=== PATIENT | female | born 2000 | race African-American/Black ===

== ENCOUNTER → 2018-07-27 | Outpatient (REF) | payer OTHER | LOC: M SFHCLERA 21:05 | DX: L08.9 Local infection of the skin and subcutaneous tissue, unspecified (principal) ==

== ENCOUNTER 2018-10-13 04:59 | Emergency (ER) | payer OTHER ==
[~2018-10-13] VITALS: Ht 162.6 cm; Wt 77.3 kg
[2018-10-13 05:02] VITALS: BP 129/86
[2018-10-13] MEDS ORDERED: AUGM500T34 PO (05:58)
[2018-10-13] MEDS ORDERED: AUGMENTIN 875 MG TAB PO ONE (06:00)
== END 2018-10-13 06:08 | disposition home or self-care (01) ==
LOC: M ED 04:59
DX: J02.9 Acute pharyngitis, unspecified (principal)

== ENCOUNTER 2018-11-01 12:24 | Emergency (ER) | payer OTHER ==
[~2018-11-01] VITALS: Ht 162.6 cm; Wt 81.8 kg
[~2018-11-01 12:24] MED LIST: AUGM500T34 PO
[2018-11-01] MEDS ORDERED: PROAAER10 INH (12:28)
[2018-11-01] MEDS ORDERED: MORPHINE 4 MG/ML 1ML VIAL/SYRINGE (J2270) IV ONE ×2 (13:00→16:15)
[2018-11-01] MEDS ORDERED: NS 1,000 ML IV ONE (13:00)
[2018-11-01] MEDS ORDERED: ONDANSETRON 4MG/2ML VIAL (J2405) IV ONE (13:00)
--- NOTE | 2018-11-01 13:34 | REP ---
Chest two views HISTORY: Abdominal pain Comparison: None The lungs are clear. The heart is normal in size. The pulmonary vasculature is normal in appearance. The bony structure is intact. IMPRESSION: No acute disease. Electronically Signed by Margarito Schwab MD 11/01/2018 01:25 P
[2018-11-01] MEDS: GASTROGRAFIN SOLUTION 30ML PO SCH ×2 (14:17→14:44)
[2018-11-01 15:23] LABS: BASO % 0.9 % (0.0-1.0); EOS # 0.2 10^3/uL (0.0-0.50); EOS % 4.7 % (0.0-3.0); HEMATOCRIT 37.4 % (36.0-47.0); HEMOGLOBIN 12.5 g/dl (12.0-15.5); LYMPH # 1.3 10^3/uL (1.5-6.5); LYMPH % 28.3 % (24.0-44.0); MEAN CORPUSCULAR HEMOGLOBIN 32.2 pg (27.0-33.0); MEAN CORPUSCULAR HGB CONC 33.4 g/dl (32.0-36.5); MEAN CORPUSCULAR VOLUME 96.4 fl (80.0-96.0); MONO # 0.7 10^3/uL (0.0-0.8); NEUTROPHILS # 2.2 10^3/uL (1.8-7.7); NEUTROPHILS % 49.7 % (36.0-66.0); PLATELET COUNT, AUTOMATED 211 10^3/uL (150-450); RED BLOOD COUNT 3.88 10^6/uL (4.00-5.40); WHITE BLOOD COUNT 4.5 10^3/uL (4.0-10.0)
[2018-11-01 15:55] LABS: ALBUMIN 3.8 GM/DL (3.2-5.2); ALT/SGPT 28 U/L (12-78); BILIRUBIN,DIRECT < 0.1 MG/DL (0.0-0.2); BILIRUBIN,TOTAL 0.3 MG/DL (0.2-1.0); BLOOD UREA NITROGEN 12 MG/DL (7-18); CALCIUM LEVEL 8.5 MG/DL (8.5-10.1); CARBON DIOXIDE LEVEL 29 MEQ/L (21-32); CHLORIDE LEVEL 109 MEQ/L (98-107); CK-MB VALUE MASS < 1.0 NG/ML (<3.6); CPK CREATINE PHOSPHOKINASE 338 U/L (26-192); CREATININE FOR GFR 0.74 MG/DL (0.55-1.30); GLUCOSE, FASTING 71 MG/DL (70-100); HCG, SERUM QUANTITATIVE < 1.0 MIU/ML; LIPASE 38 U/L (73-393); POTASSIUM SERUM 5.7 MEQ/L (3.5-5.1); SODIUM LEVEL 140 MEQ/L (136-145); TOTAL PROTEIN 7.5 GM/DL (6.4-8.2); TROPONIN I < 0.02 NG/ML (< 0.10)
[2018-11-01 15:56] LABS: INFLUENZA A AMPLIFICATION NEGATIVE (NEGATIVE); INFLUENZA B AMPLIFICATION NEGATIVE (NEGATIVE)
[2018-11-01] MEDS ORDERED: ISOVUE-370 76% 125ML VIAL (Q9967 PER ML) As Ordered ONE (16:03)
--- NOTE | 2018-11-01 16:30 | REP ---
CT abdomen pelvis with contrast History: Abdominal pain Contrast: Isovue 370 100 ml The liver, gallbladder, pancreas, spleen, adrenal glands and kidneys are normal in appearance. There is no mass adenopathy or free fluid. The visualized lungs are clear. The urinary bladder and uterus are normal in appearance. There is no fracture or subluxation. There is partial sacralization of the L5 vertebral body. Impression: Normal CT abdomen and pelvis. Electronically Signed by Margarito Schwab MD 11/01/2018 04:22 P
[2018-11-01] MEDS ORDERED: IBUP-1022 PO (16:47)
[2018-11-01] MEDS ORDERED: CITRSOL8 PO (16:47)
[2018-11-01] MEDS ORDERED: MIRA3350 PO (16:47)
[2018-11-01 16:57] VITALS: BP 127/83
--- NOTE | 2018-11-01 18:51 | ECGEPIP ---
Stationary ECG Study [facility] - ED Test Date: 2018-11-01 Pat Name: RAISSA VERONICA Department: Room: - Gender: F Extruder: JASPREET : 2000 Requested By: CAITLYN Wilson Order Number: [id number] Reading MD: Leona Casper Measurements Intervals [place] Rate: 72 P: 41 ID: [id number] QRS: 30 QRSD: 83 T: 39 QT: 364 QTc: 398 Interpretive Statements SINUS RHYTHM NO PRIOR FOR COMPARISON Electronically Signed On 11-01-2018 18:50:47 EDT by Leona Casper
== END 2018-11-01 17:05 | disposition home or self-care (01) ==
LOC: M ED 12:24
DX: K59.00 Constipation, unspecified (principal); J45.909 Unspecified asthma, uncomplicated; Z87.891 Personal history of nicotine dependence
CPT/HCPCS: 71046; 74177; 80048; 80076; 81001; 82550; 82553; 83605; 83690; 84484; 84702; 85025; 87502; 93005; 93041; 96361; 96374; 96375; 96376; 99285; J2270; J2405; Q9963; Q9967

== ENCOUNTER 2019-01-13 13:34 | Emergency (ER) | payer OTHER ==
[~2019-01-13] VITALS: Ht 162.6 cm; Wt 80.5 kg
[~2019-01-13 13:34] MED LIST changes: +CITRSOL8 PO; +IBUP-1022 PO; +MIRA3350 PO; +PROAAER10 INH
[2019-01-13] MEDS ORDERED: FLON27.5 NARES (16:49)
[2019-01-13 16:56] VITALS: BP 122/73
[2019-01-13] MEDS ORDERED: IBUPROFEN 600 MG TAB PO ONE (17:00)
== END 2019-01-13 17:02 | disposition home or self-care (01) ==
LOC: M ED 13:34
DX: J06.9 Acute upper respiratory infection, unspecified (principal); Z77.098 Contact with and (suspected) exposure to other hazardous, chiefly nonmedicinal, chemicals

== ENCOUNTER 2019-01-31 21:10 | Emergency (ER) | payer OTHER ==
[~2019-01-31] VITALS: Ht 162.6 cm; Wt 84.1 kg
[~2019-01-31 21:10] MED LIST changes: +FLON27.5 NARES
[2019-01-31] MEDS ORDERED: CYCLOBENZAPRINE 10 MG TAB PO ONE (22:30)
[2019-01-31] MEDS ORDERED: KETOROLAC 60 MG/2 ML VIAL (J1885) IM ONE (22:30)
[2019-01-31] MEDS ORDERED: CYCL5TAB PO (23:12)
[2019-01-31 23:22] VITALS: BP 120/80
--- NOTE | 2019-02-01 07:35 | REP ---
Left knee five views : There is no fracture or dislocation. Mineralization and joint spaces are normal. There are no calcifications or foreign bodies. Impression: Negative left knee . Electronically Signed by Noel Conway MD 02/01/2019 07:27 A
== END 2019-01-31 23:24 | disposition home or self-care (01) ==
LOC: M ED 21:10
DX: M54.5 Low back pain (principal); M79.661 Pain in right lower leg; M79.662 Pain in left lower leg; Z77.098 Contact with and (suspected) exposure to other hazardous, chiefly nonmedicinal, chemicals
CPT/HCPCS: 73564; 96372; 99283; J1885

== ENCOUNTER 2019-03-29 10:00 | Inpatient (IN) | payer OTHER ==
[~2019-03-29] VITALS: Ht 165.1 cm; Wt 87.3 kg
[~2019-03-29 10:00] MED LIST changes: +CYCL5TAB PO
[2019-03-29] MEDS ORDERED: CITA10TA5 PO (10:29)
[2019-03-29] MEDS ORDERED: HYDR-3363 PO (10:29)
[2019-03-29] MEDS ORDERED: MELA1LIQ2 PO (10:29)
[2019-03-29 10:38] LABS: HEMATOCRIT 39.8 % (36.0-47.0); HEMOGLOBIN 13.3 g/dl (12.0-15.5); MEAN CORPUSCULAR HEMOGLOBIN 32.6 pg (27.0-33.0); MEAN CORPUSCULAR HGB CONC 33.4 g/dl (32.0-36.5); MEAN CORPUSCULAR VOLUME 97.5 fl (80.0-96.0); PLATELET COUNT, AUTOMATED 288 10^3/uL (150-450); RED BLOOD COUNT 4.08 10^6/uL (4.00-5.40); WHITE BLOOD COUNT 4.9 10^3/uL (4.0-10.0)
[2019-03-29 10:51] LABS: HCG, SERUM QUALITATIVE NEGATIVE (NEGATIVE)
[2019-03-29 10:56] LABS: AMPHETAMINES LEVEL URINE NEGATIVE (NEGATIVE); BARBITURATES URINE NEGATIVE (NEGATIVE); BENZODIAZEPINES URINE NEGATIVE (NEGATIVE); CANNABINOIDS URINE NEGATIVE (NEGATIVE); COCAINE METABOLITE URINE NEGATIVE (NEGATIVE); METHADONE URINE NEGATIVE (NEGATIVE); OPIATES URINE NEGATIVE (NEGATIVE); PHENCYCLIDINE URINE NEGATIVE (NEGATIVE)
[2019-03-29 11:04] LABS: ALT/SGPT 30 U/L (12-78); BILIRUBIN,DIRECT 0.2 MG/DL (0.0-0.2); BILIRUBIN,TOTAL 0.4 MG/DL (0.2-1.0); BLOOD UREA NITROGEN 9 MG/DL (7-18); CALCIUM LEVEL 9.6 MG/DL (8.5-10.1); CARBON DIOXIDE LEVEL 30 MEQ/L (21-32); CHLORIDE LEVEL 109 MEQ/L (98-107); CREATININE FOR GFR 0.73 MG/DL (0.55-1.30); GLUCOSE, FASTING 81 MG/DL (70-100); POTASSIUM SERUM 4.4 MEQ/L (3.5-5.1); SALICYLATE LEVEL < 1.7 MG/DL (5.0-30.0); SODIUM LEVEL 143 MEQ/L (136-145); TOTAL PROTEIN 7.5 GM/DL (6.4-8.2)
[2019-03-29 11:05] LABS: ACETAMINOPHEN LEVEL < 2.0 UG/ML (10.0-30.0); ETHYL ALCOHOL (ETHANOL) < 0.003 % (0.000-0.010)
[2019-03-29] MEDS ORDERED: hydrOXYzine 25 MG TAB PO PRN (13:15)
[2019-03-29] MEDS ORDERED: HALOPERIDOL 5 MG TAB PO PRN (13:15)
[2019-03-29] MEDS ORDERED: ACETAMINOPHEN TAB 650MG DOSE (2X325MG) PO PRN (13:15)
[2019-03-29] MEDS ORDERED: MOM 30ML SUSPENSION UDC PO PRN (13:15)
[2019-03-29] MEDS ORDERED: NICOTINE 21MG/24HR 1 EA TRANSDERMAL TD ONE (15:00)
[2019-03-29] MEDS: CitaloPRAM (CeleXA) 10 MG TABLET PO SCH (15:57)
[2019-03-29 16:28] VITALS: BP_SYST 143; BP_SYST 147; BP_DIAS 84; BP_DIAS 86
[2019-03-30 06:46] VITALS: BP 119/55
[2019-03-30] MEDS: CitaloPRAM (CeleXA) 10 MG TABLET PO SCH (08:06)
[2019-03-30] MEDS: NICOTINE 21MG/24HR 1 EA TRANSDERMAL TD SCH (08:07)
--- NOTE | 2019-03-30 10:21 | HPEPDOC ---
General Date of Admission Mar 29, 2019 at 13:06 Date of Service: Mar 30, 2019 Attending Physician: ELAN THOMPSON MD Chief Complaint The patient is a 18-year-old female admitted with a reason for visit of Unspecified Depressive Disorder. 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 Review of medical records state patient has been having thoughts of depression and having thoughts of killing herself for chuck roximately 1 week. She does have a history of depression and anxiety. On evaluation, patient denies chest pain, shortness of breath, weakness, chills, fever, abdominal pain, she complains of insomnia Home Medications Scheduled Citalopram Hydrobromide (Citalopram HBr) 10 Mg Tablet, 10 MG PO DAILY, (Reported) Scheduled PRN Hydroxyzine HCl (Hydroxyzine HCl) 25 Mg Tablet, 25 MG PO Q8H PRN for ANXIETY, (Reported) Allergies Coded Allergies: No Known Allergies (Unverified , 01/31/19) Past Medical History Medical History Obesity Insomnia Depression and anxiety Surgical History Tonsillectomy Family History Mother: Hypothyroidism Social History * Smoker: Denies, current smoker Alcohol: Denies Drugs: denies A-FIB/CHADSVASC A-FIB History Current/History of A-Fib/PAF?: No Current PO Anticoag Therapy: No Review of Systems Other systems A pertinent 10 point review of systems is completed, negative except as stated in the history of presenting illness Physical Examination Other physical findings GENERAL: NAD SKIN : Warm, dry intact HEENT: Atraumatic, normocephalic, PERRL, moist mucous membrane CARDIOVASCULAR: Regular rate and rhythm, S1S2, no JVD, trace edema BLE, distal pulses + palpable RESP: CTAB, no accessory muscle use noted ABDOMEN: BS+ non distended non tender MS: no joint deformities NEURO: Alert and oriented x 3, CN2-12 grossly intact PSYCH: no anxiety or agitation, appropriate mood and affect. Vital Signs Vital Signs Date Time Temp Pulse Resp B/P (MAP) Pulse Ox O2 Delivery O2 Flow Rate FiO2 03/30/19 06:46 98.0 55 14 119/55 (76) 03/29/19 16:28 96 03/29/19 14:02 Room Air Laboratory Data Labs 24H Laboratory Tests 2 03/29/19 10:21: Nucleated Red Blood Cells % (auto) 0.0, Anion Gap 4L, Calcium Level 9.6, Aspartate Amino Transf (AST/SGOT) 21, Alanine Aminotransferase (ALT/SGPT) 30, Alkaline Phosphatase 83, Total Bilirubin 0.4, Direct Bilirubin 0.2, Total Protein 7.5, Albumin 4.0, Albumin/Globulin Ratio 1.14, Thyroid Stimulating Hormone (TSH) 3.080, Human Chorionic Gonadotropin, Qual NEGATIVE, Salicylates Level < 1.7L, Acetaminophen Level < 2.0L, Ethyl Alcohol Level < 0.003 03/29/19 10:27: Urine Amphetamines Screen NEGATIVE, Urine Benzodiazepines Screen NEGATIVE, Urine Opiates Screen NEGATIVE, Urine Methadone Screen NEGATIVE, Urine Barbiturates Screen NEGATIVE, Urine Phencyclidine Screen NEGATIVE, Urine Cocaine Metabolite Screen NEGATIVE, Urine Cannabinoids Screen NEGATIVE CBC/BMP Laboratory Tests 03/29/19 10:21 Red Blood Count 4.08, Mean Corpuscular Volume 97.5 H, Mean Corpuscular Hemoglobin 32.6, Mean Corpuscular Hemoglobin Concent 33.4, Red Cell Distribution Width 12.3 Assessment/Plan Obesity BMI32 Nicotine dependence Suicidal ideation Depression and anxiety/insomnia Plan Currently, patient has no acute medical problems requiring follow-up and management Management of acute mental health problems by primary team Reconsult medical team as needed Problems (1) Obesity (BMI 30.0-34.9) (2) Depression with suicidal ideation Status: Acute Plan / VTE VTE Prophylaxis Ordered?: No VTE Exclusion Mechanical Proph: Low Risk for VTE MIGUELITO STERN Mar 30, 2019 10:21
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
[2019-03-30 17:52] VITALS: BP 110/58
[2019-03-30 18:00] VITALS: BP 110/58
[2019-03-30] MEDS: traZODone 50 MG TAB PO PRN (23:15)
[2019-03-31 06:52] VITALS: BP 122/66
[2019-03-31] MEDS: buPROPion **XL** TABLET 150MG (WELLBUTRIN XL) PO SCH (08:15)
[2019-03-31] MEDS: NICOTINE 21MG/24HR 1 EA TRANSDERMAL TD SCH (08:16)
--- NOTE | 2019-03-31 11:54 | MHIPNPDOC ---
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 Interval History The patient's met with twice today. She reports that she is feeling much improved with no depressive symptoms, improved focus and concentration, and has been attending groups well. No notable behavioral problems. She has been generally amenable on the unit and denies any side effects from her Wellbutrin at this time. She reports that she is feeling ready to return home tomorrow and is relieved to be leaving the unit. Review Of Systems Denies any headache, tremor, palpitations, or other side effects related to her Wellbutrin at this time. Psychotherapy None on this visit. Vital Signs Reviewed. Mental Status Examination General: Well dressed with good hygiene Speech: Spontaneous and fluid Thought processes: Linear and logical MSK: Smooth and coordinated gait, no signs of tremors or involuntary orofacial movements Thought content: Future orientated Abstract reasoning, and computation: Intact Description of associations: Intact Description of abnormal or psychotic thoughts: Denies any suicidal or homicidal ideation. Denies any auditory or visual hallucinations. Does not appear to be responding to internal stimuli. Does not appear to be endorsing any bizarre or paranoid ideation. Judgment: fair Insight: fair Orientation: Alert and orientated 3 Cognition: Grossly normal Recent and remote memory: Intact Attention span and concentration: Intact Fund of knowledge: Adequate Mood: "okay" Affect: Euthymic with a full range Diagnoses Unspecified depressive disorder Rule out adjustment disorder versus malingering/factitious Unspecified personality disorder Rule out cluster B/borderline personality traits Assessment and Plan The patient's met with today and it appears that she's making good progress on a low dose of Wellbutrin. Her initial presenting symptoms could very well be malingered or related to adjustment and/or borderline personality disorder. However, she has elected that she wishes to go and does not meet involuntary criteria as she's not demonstrating any suicidal thoughts for last 24 hours and is attending to her needs and it does appear in this provider's clinical judgment that she's likely manufacturing a significant portion of her symptoms as well as the reported suicidal ideation noted on her admission in order to gain a med board to avert her chapter 15 article that she has received. Disposition Discharge tomorrow. Time Spent 15 minutes [id number]. Vital Signs Vital Signs Date Time Temp Pulse Resp B/P (MAP) Pulse Ox O2 Delivery O2 Flow Rate FiO2 03/31/19 06:52 98.2 52 18 122/66 (84) 03/29/19 16:28 96 03/29/19 14:02 Room Air Current Medications Current Medications Medications (Trade) Dose Ordered Sig/Tata Route PRN Reason Start Time Stop Time Status Last Admin Dose Admin Acetaminophen (Tylenol Tab) 650 mg Q6HP PRN PO HEADACHE or DISCOMFORT 03/29/19 13:15 Bupropion HCl (Wellbutrin Xl) 150 mg DAILY PO 03/31/19 09:00 03/31/19 08:15 Citalopram Hydrobromide (CeleXA) 10 mg DAILY PO 03/29/19 09:00 03/30/19 14:46 DC 03/30/19 08:06 Haloperidol (Haldol) 5 mg Q6HP PRN PO ANXIETY/AGITATION 03/29/19 13:15 Home Med (Med Rec Complete!) ASDIRECTED XX 03/29/19 13:15 03/29/19 13:15 DC Hydroxyzine HCl (Atarax) 25 mg Q8H PRN PO ANXIETY 03/29/19 13:15 Magnesium Hydroxide (Milk Of Magnesia) 30 ml DAILYPRN PRN PO CONSTIPATION 03/29/19 13:15 Nicotine (Nicoderm Cq 21mg) 1 patch DAILY TD 03/30/19 09:00 03/31/19 08:16 Trazodone HCl (Desyrel) 50 mg QHSP PRN PO INSOMNIA 03/29/19 13:15 03/30/19 23:15 Allergies Coded Allergies: No Known Allergies (Unverified , 01/31/19) NETO WEINER DO Mar 31, 2019 11:54
[2019-03-31 18:00] VITALS: BP 117/76
[2019-03-31] MEDS: traZODone 50 MG TAB PO PRN (22:37)
[2019-04-01 06:45] VITALS: BP 101/68
[2019-04-01] MEDS: buPROPion **XL** TABLET 150MG (WELLBUTRIN XL) PO SCH (08:27)
[2019-04-01] MEDS: NICOTINE 21MG/24HR 1 EA TRANSDERMAL TD SCH (08:27)
[2019-04-01] MEDS ORDERED: BUPR150T3 PO (11:22)
[2019-04-01] MEDS ORDERED: NICO21PAT TD (11:22)
--- NOTE | 2019-04-01 20:50 | MHDSPDOC ---
[facility] Discharge Summary Discharge Summary DATE OF ADMISSION: Mar 29, 2019 at 13:06 DATE OF DISCHARGE: Apr 01, 2019 at 13:30 Date of Service: 04/01/2019 Diagnoses Unspecified depressive disorder. Rule out malingering versus factitious versus adjustment. 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 Consultants Involved Hospitalist/PCP screening Treatment and Progress On The Unit The patient was admitted to the inpatient unit, where she was observed. She was started on Wellbutrin, taken off of her citalopram and started 250 mg daily of extended-release. She made fairly good progress. However, it was notable during her mission that she did not demonstrate any concerning signs or symptoms that would be consistent with the reported symptoms of depression that she had been claiming on initial evaluation. Her reported suicidal thoughts upon initial evaluation rapidly dissolved when the patient had noted that she was "board" and wished to be discharged. She did not meet involuntary criteria at that time as she was not demonstrating any concernings thoughts and her behavior was consistent with the generally euthymic individual and thus she was discharged in good phase as she didn't like against a further voluntary admission. She had made multiple statements during her admission that she was considering a med board at this time and had neglected to mention her Article 15 proceedings. There's a strong concern among many members of the treatment team that the patient was manufacturing her symptoms in a vain attempt to avoid an Article 15 discharge from the . Discharge Assessment The patient, 18-year-old woman with a history of reported depression presents with reported severe depressive symptoms that are not apparent upon assessment and observation on the unit. She request discharge shortly after presenting after noting that she was "board," which is more consistent with the concern of the treatment team of factitious versus malingering. Mental Status Examination General: Well dressed with good hygiene Speech: Spontaneous and fluid Thought processes: Linear and logical MSK: Smooth and coordinated gait, no signs of tremors or involuntary orofacial movements Thought content: Future orientated Abstract reasoning, and computation: Intact Description of associations: Intact Description of abnormal or psychotic thoughts: Denies any suicidal or homicidal ideation. Denies any auditory or visual hallucinations. Does not appear to be responding to internal stimuli. Does not appear to be endorsing any bizarre or paranoid ideation. Judgment: fair Insight: fair Orientation: Alert and orientated 3 Cognition: Grossly normal Recent and remote memory: Intact Attention span and concentration: Intact Fund of knowledge: Adequate Mood: "okay" Affect: Euthymic with a full range Follow Up The social work team worked during the predischarge meeting in order to evaluate for further issues of lethality address them fully before discharge. They worked on safety planning with the patient's family members in order to ensure that the patient will have a safe and effective discharge. Time Spent The amount of time spent in the coordination of care for this patient was approximately 30 minutes. Vital Signs/I&Os Vital Signs Date Time Temp Pulse Resp B/P (MAP) Pulse Ox O2 Delivery O2 Flow Rate FiO2 04/01/19 06:45 99.2 52 14 101/68 (79) 03/29/19 16:28 96 03/29/19 14:02 Room Air Medications Scheduled Bupropion Hcl (Bupropion Xl) 150 Mg Tab.er.24h, 150 MG PO DAILY for MOOD for 7 Days, #7 Nicotine (Nicotine Patch) 21 Mg Patch.td24, 1 PATCH TD DAILY for SMOKING for 30 Days, #30 Scheduled PRN Hydroxyzine HCl (Hydroxyzine HCl) 25 Mg Tablet, 25 MG PO Q8H PRN for ANXIETY, (Reported) Allergies Coded Allergies: No Known Allergies (Unverified , 01/31/19) NETO WEINER DO Apr 01, 2019 20:50
== END 2019-04-01 13:30 | disposition home or self-care (01) | DRG 881 ==
LOC: M ED 10:00 → M ED INP 13:06 → M PSY 14:35
PROVIDERS: ADMIT Psychiatry & Neurology Addiction Medicine; ATTEND Psychiatry & Neurology Addiction Medicine
DX: F32.9 Major depressive disorder, single episode, unspecified (principal); R45.851 Suicidal ideations; F68.11 Factitious disorder imposed on self, with predominantly psychological signs and symptoms; F43.21 Adjustment disorder with depressed mood; E66.9 Obesity, unspecified; G47.00 Insomnia, unspecified; F17.200 Nicotine dependence, unspecified, uncomplicated

== ENCOUNTER 2019-05-06 10:35 | Emergency (ER) | payer OTHER ==
[~2019-05-06] VITALS: Ht 162.6 cm; Wt 90.1 kg
[~2019-05-06 10:35] MED LIST changes: +BUPR150T3 PO; +CITA10TA5 PO; +HYDR-3363 PO; +MELA1LIQ2 PO; +NICO21PAT TD
[2019-05-06] MEDS ORDERED: HYDR-4570 (10:42)
[2019-05-06] MEDS ORDERED: MELA3TAB41 (10:42)
[2019-05-06 11:10] LABS: HEMATOCRIT 36.4 % (36.0-47.0); HEMOGLOBIN 12.4 g/dl (12.0-15.5); MEAN CORPUSCULAR HGB CONC 34.1 g/dl (32.0-36.5); MEAN CORPUSCULAR VOLUME 94.1 fl (80.0-96.0); PLATELET COUNT, AUTOMATED 255 10^3/uL (150-450); RED BLOOD COUNT 3.87 10^6/uL (4.00-5.40); WHITE BLOOD COUNT 4.7 10^3/uL (4.0-10.0)
[2019-05-06 11:46] VITALS: BP 128/82
== END 2019-05-06 11:53 | disposition home or self-care (01) ==
LOC: M ED 10:35
DX: N92.6 Irregular menstruation, unspecified (principal); F17.200 Nicotine dependence, unspecified, uncomplicated; F41.9 Anxiety disorder, unspecified; F32.9 Major depressive disorder, single episode, unspecified; G47.00 Insomnia, unspecified; Z79.899 Other long term (current) drug therapy

== ENCOUNTER 2019-08-02 19:49 | Emergency (ER) | payer OTHER ==
[~2019-08-02] VITALS: Ht 162.6 cm; Wt 89.5 kg
[~2019-08-02 19:49] MED LIST changes: +HYDR-4570; +MELA3TAB41
[2019-08-02] MEDS ORDERED: TRAZ-252 (19:55)
[2019-08-02] MEDS ORDERED: ESCI10TA2 (19:55)
[2019-08-02] MEDS ORDERED: KETOROLAC 60 MG/2 ML VIAL (J1885) IM ONE (21:45)
[2019-08-02] MEDS ORDERED: LIDOCAINE 5% (LIDODERM) PATCH TD ONE (21:45)
[2019-08-02] MEDS ORDERED: LIDO5TD TOP (23:17)
[2019-08-02] MEDS ORDERED: ROBA750T4 PO (23:17)
[2019-08-02] MEDS ORDERED: NAPR-837 PO (23:17)
[2019-08-02 23:30] VITALS: BP 132/84
[2019-08-02] MEDS ORDERED: METHOCARBAMOL 750 MG TAB PO ONE (23:30)
--- NOTE | 2019-08-03 08:33 | REP ---
Right elbow series: Four views. History: Tenderness after a fall. Findings: Four views right elbow demonstrate mild clothing artifact. Bones joints and soft tissues are otherwise unremarkable. No fracture, subluxation, or joint effusion is seen. Impression: Negative radiographs of the right elbow. Electronically Signed by Emile Arcos MD 08/03/2019 08:25 A
[2019-08-03] MEDS ORDERED: **NOTE PATIENT COMMENT** MISC XX SCH (21:00)
== END 2019-08-02 23:33 | disposition home or self-care (01) ==
LOC: M ED 19:49
DX: M54.6 Pain in thoracic spine (principal); S50.01XA Contusion of right elbow, initial encounter; S16.1XXA Strain of muscle, fascia and tendon at neck level, initial encounter; W00.0XXA Fall on same level due to ice and snow, initial encounter; Y92.89 Other specified places as the place of occurrence of the external cause; Y99.0 Civilian activity done for income or pay; Z79.899 Other long term (current) drug therapy; F17.210 Nicotine dependence, cigarettes, uncomplicated
CPT/HCPCS: 73080; 96372; 99283; J1885

== ENCOUNTER 2019-09-17 22:35 | Emergency (ER) | payer OTHER ==
[~2019-09-17] VITALS: Ht 162.6 cm; Wt 86.4 kg
[~2019-09-17 22:35] MED LIST changes: +ESCI10TA2; +LIDO5TD TOP; +NAPR-837 PO; +ROBA750T4 PO; +TRAZ-252
[2019-09-17] MEDS ORDERED: PREN27TA3 (22:42)
--- NOTE | 2019-09-18 02:34 | REPVR ---
PROCEDURE INFORMATION: Exam: US First Trimester, Transabdominal Exam date and time: 09/18/2019 1:57 AM Age: 19 years old Clinical indication: complicated by abdominal or pelvic pain; Right lower quadrant; First trimester; Gestational age or lmp: 6w6d; ; Additional info: Rlq pain, hcg [id number] TECHNIQUE: Imaging protocol: Real-time transabdominal obstetrical ultrasound of the maternal pelvis and a first trimester , less than 14 weeks 0 days, with image documentation. COMPARISON: US Abdomen 09/18/2019 1:49 AM FINDINGS: GESTATION: Gestation: Single live intrauterine . Heart rate: 132 beats per minute. Placenta: No subchorionic hemorrhage. Amniotic fluid: Amniotic and coelomic fluid are normal for gestational age. BIOMETRY: Estimated gestational age: 6 weeks 6 days. Gosnell-Rump length: 0.8 cm. Estimated due date: Estimated date of delivery: 05/07/2020. MATERNAL: Uterus: Unremarkable. Cervix: Unremarkable. Right adnexa: Corpus luteum cyst in the right ovary. Left adnexa: Unremarkable. Intraperitoneal: No intraperitoneal free fluid. IMPRESSION: Unremarkable intrauterine with estimated gestational age of 6 weeks 6 days. Electronically signed by: Jose Luis Ceballos On 09/18/2019 02:35:59 AM
--- NOTE | 2019-09-18 02:37 | REPVR ---
PROCEDURE INFORMATION: Exam: US Abdomen Limited, Right Upper Quadrant Exam date and time: 09/18/2019 1:57 AM Age: 19 years old Clinical indication: Abdominal pain; Epigastric; ; Additional info: Ruq pain TECHNIQUE: Imaging protocol: Real-time ultrasound of the abdomen with image documentation. Examination was focused on the right upper quadrant. COMPARISON: No relevant prior studies available. FINDINGS: Liver: Normal. No masses. Gallbladder: Normal. No gallstones. There is no gallbladder wall thickening. Common bile duct: Normal. No stones. No dilation. Pancreas: Visualized pancreas is unremarkable. Right kidney: Normal. No mass. No hydronephrosis. IMPRESSION: No acute findings. Electronically signed by: Jose Luis Ceballos On 09/18/2019 02:38:18 AM
[2019-09-18 03:02] VITALS: BP 154/70
== END 2019-09-18 03:03 | disposition home or self-care (01) ==
LOC: M ED 22:35
DX: O26.891 Other specified pregnancy related conditions, first trimester (principal); R10.9 Unspecified abdominal pain; Z3A.01 Less than 8 weeks gestation of pregnancy

== ENCOUNTER → 2019-12-17 | Outpatient (CLI) | payer OTHER ==
[~2019-12-17] MED LIST changes: -MELA3TAB41; +MELA3TAB62; +PREN27TA3
--- NOTE | 2019-12-17 17:40 | REP ---
Clinical: Anatomical evaluation. Comparison: 09/18/2019 . Findings: Examination demonstrates a single live intrauterine in cephalic presentation. motion is identified by technologist. Placenta is noted posterior and grade zero without evidence for placenta previa or abruption. Amniotic fluid volume is normal. Cervix measures 4.7 cm in length and appears closed. No evidence for nuchal cord. Gestational age by LMP 19 weeks 6 days with DEMARCUS 05/06/2020 . Gestational age by current measurements 20 weeks 6 days with DEMARCUS 04/29/2020 . FHR equals 150 beats per minute. BPD 4.8 cm 20 weeks 3 days HC 17.2 cm 19 weeks 5 days AC 16.5 cm 21 weeks 4 days FL 3.5 cm 21 weeks 1 day HL 3.3 cm 21 weeks 1 day HC/AC ratio 1.04 Estimated weight 405 grams ( 96th percentile). Anatomical assessment demonstrates normal structures including cranium, choroid plexus, cavum, cerebellum/posterior fossa, lungs, four-chamber heart, diaphragm, stomach, cord insertion/three-vessel cord, kidneys/bladder, spine, and extremities. Impression: Single live intrauterine in cephalic presentation demonstrating appropriate interval growth. Limited evaluation of the facial features and cardiac ventricular outflow tracts. Remainder of the anatomical assessment is complete and normal. Electronically Signed by Ruslan Levin MD 12/17/2019 05:31 P
== END ==
LOC: M RAD 15:43
PROVIDERS: ATTEND Obstetrics & Gynecology
DX: Z34.92 Encounter for supervision of normal pregnancy, unspecified, second trimester (principal); Z3A.19 19 weeks gestation of pregnancy

== ENCOUNTER 2020-01-09 20:41 | Outpatient (CLI) | payer OTHER ==
[~2020-01-09] VITALS: Ht 162.6 cm; Wt 90.4 kg
[2020-01-09 21:09] VITALS: BP 130/72
[2020-01-09 21:12] VITALS: BP 127/75
[2020-01-09 22:23] VITALS: BP 143/64
--- NOTE | 2020-01-09 22:33 | IPNPDOC ---
Text Note Date of Service The patient was seen on 01/09/20. NOTE Triage Note Chery is a 19yo with SIUP at approx 24wk who presents tonight for "cramping" that started around 11am today. She endorses having intercourse at 10am today- though she notes that she has never had cramping afterwards before. She notes the discomfort is sharp and mostly constant, located in her lower abdomen. Feels baby move occasionally. No vaginal bleeding. Had some increased vaginal fluid after intercourse but no big gush with continued leaking. No pain with urination. No vaginal itching/burning. No f/c/n/v/CP/SOB/cough. 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 Vitals wnl, benign exam. Reassuring status. yeast/hyphae noted on slide. NO e/o PTL. Plan: -Provided reassurance and education on expectations -Instructed patient to increase hydration -Instructed patient to go to [facility] for monostat (no need for Rx at [facility] b/c part of self care program) -Return precautions discussed -Instructed to keep next u/s appt, make next 28wk OB appt, knows to do 28wk labs at [facility] before appt -Safe for discharge home Dr. Louise Camp MD VS,Mark, I+O VS, Mark, I+O Vital Signs Date Time Temp Pulse Resp B/P (MAP) Pulse Ox O2 Delivery O2 Flow Rate FiO2 01/09/20 22:23 82 18 143/64 (90) 01/09/20 21:20 Room Air 01/09/20 21:09 98.3 Louise Camp MD January 09, 2020 22:33
== END 2020-01-09 22:35 | disposition home or self-care (01) ==
LOC: M LDO 20:41
PROVIDERS: ATTEND Obstetrics & Gynecology
DX: O26.892 Other specified pregnancy related conditions, second trimester (principal); R10.30 Lower abdominal pain, unspecified; O23.592 Infection of other part of genital tract in pregnancy, second trimester; Z3A.24 24 weeks gestation of pregnancy
CPT/HCPCS: G0378; G0463

== ENCOUNTER 2020-03-04 21:09 | Outpatient (CLI) | payer OTHER ==
[~2020-03-04 21:09] MED LIST changes: +MELA3TAB30; -MELA3TAB62
[2020-03-04 22:06] VITALS: BP 123/72
--- NOTE | 2020-03-04 23:08 | IPNPDOC ---
Obstetrical Progress Note Date of Service Mar 04, 2020 Subjective 19-year-old 5, para 0 at 31 weeks 0 days, presents with lower pelvic pain. She denies any vaginal bleeding, leakage of fluid, contractions, dysuria, vaginal discharge, fever, chills Objective Vital Signs Date Time Temp Pulse Resp B/P (MAP) Pulse Ox O2 Delivery O2 Flow Rate FiO2 03/04/20 22:06 97.5 79 123/72 (89) Assessment Variability: Moderate Accelerations: Positive Decelerations: None Heart Rate Tracing: Category I Tocometer Contractions: No Assessment and Plan Age: 19 : 5 Livin Status: Reassuring Additional Comments 19-year-old 5, para 0, 31 weeks 0 days estimated gestational age with round ligament pain. Reassuring status. Patient counseled on labor precautions and instructed on kick count instructions. Follow-up at next OB appointment March 09. DARIA CARPIO MD. Mar 04, 2020 23:08
== END 2020-03-04 23:10 | disposition home or self-care (01) ==
LOC: M LDO 21:09
PROVIDERS: ATTEND Obstetrics & Gynecology
DX: O26.893 Other specified pregnancy related conditions, third trimester (principal); R10.2 Pelvic and perineal pain; Z3A.31 31 weeks gestation of pregnancy
CPT/HCPCS: 59025; G0378; G0463

== ENCOUNTER 2020-05-06 22:01 | Outpatient (CLI) | payer OTHER ==
[~2020-05-06] VITALS: Ht 162.6 cm; Wt 93.2 kg
[2020-05-06 22:17] VITALS: BP 139/91
[2020-05-06 22:41] VITALS: BP 137/95
[2020-05-06] MEDS ORDERED: LR 1,000 ML IV ONE (23:30)
--- NOTE | 2020-05-06 23:35 | IPNPDOC ---
Text Note Date of Service The patient was seen on 05/06/20. NOTE S: Patient is a 19yo at 40.0wks by LMP c/w 1st trimester US. C/o ctx q4- 5min all day. +FM. No LOF. No VB. No headaches or visual changes. O: VSS but BP 130s/80s, HR high 90s ABD: NT, gravid SVE: FT/thick/high LE: no edema, NT FHT: Cat 2, 180s, reactive, intermittent variables, ctx q 5min Urine: Dark with high SG A/P: Patient dehydrated likely causing maternal and tachycardia. No evidence of infection (afebrile) and denied caffeine and nicotine. Will hydrate with 1L LR. FHT: Cat 1, 160s, reactive, no decels, no ctx with hydration. Patient given hydration precautions. She has follow up on 05/08/2020. Krys Conway MD May 06, 2020 23:35
[2020-05-08] MEDS ORDERED: DIBU10OI TOP (18:08)
[2020-05-08] MEDS ORDERED: DOCU100C16 PO (18:08)
[2020-05-08] MEDS ORDERED: IBUP80TA PO (18:08)
== END 2020-05-07 01:19 | disposition home or self-care (01) ==
LOC: M LDO 22:01
PROVIDERS: ATTEND Obstetrics & Gynecology
DX: O99.283 Endocrine, nutritional and metabolic diseases complicating pregnancy, third trimester (principal); E86.0 Dehydration; Z3A.40 40 weeks gestation of pregnancy
CPT/HCPCS: 59025; 96374; G0378; G0463

== ENCOUNTER 2020-05-07 08:40 | Inpatient (IN) | payer OTHER ==
[~2020-05-07] VITALS: Ht 162.6 cm; Wt 93.2 kg
[2020-05-07] VITALS (40 sets, daily range): BP systolic 107–159; BP diastolic 63–105
[2020-05-07] MEDS ORDERED: PROMETHAZINE INJ 25 MG/ML VIAL (J2550) IV ONE (09:45)
[2020-05-07] MEDS ORDERED: BUTORPHANOL 2 MG/ML INJ (J0595) IV ONE (09:45)
--- NOTE | 2020-05-07 10:10 | HPEPDOC ---
Obstetrical History & Physical General Date of Admission May 07, 2020 at 09:14 History of Present Illness 19yo at 40+1 by LMP presents for contractions that have been going on fo r a day but have become stronger. She otherwise denied VB, LOF, decreased FM. She denied n/v/d, cp, sob, valencia, visual changes, f/c, vaginal dc, urinary sx. 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) Past Medical History Medical History CURTIS does not use CPAP, anxiety, depression, obesity Surgical History: Tonsilectomy Family History Significant Family History: No pertinent family hx Social History Family situation: Spouse/partner home * Smoker: former Smoker Alcohol: Denies Drugs: denies Imunizations Tdap status: declined Influenza Status: declined Allergies Coded Allergies: No Known Allergies (Unverified , 01/31/19) Medications Miscellaneous Medications Pnv,Calcium 72/Iron/Folic Acid ( Vitamin Plus Low Iron) 1 Each Tablet Physical Examination Physical Examination GENERAL: Alert and oriented times three. BREAST: . ABDOMEN: Gravid and non-tender to touch. FETUS: Is vertex (VTX) by sterile vaginal examination (SVE), fetus is vertex (VTX) by Jesse. HEART RATE: Regular rate and rhythm. LUNGS: Clear to auscultation (CTA). EXTREMITIES: No edema. No clonus. Deep tendon reflexes (DTRs) + . Laboratory Data Urine Culture: No Growth Pertinent Laboratoy Data Blood Type: A+ RBC Antibody Screen: Negative HIV: Negative Hepatitis B: Negative Rapid Plasma Reagin: Nonreactive Rubella: Immune Varicella: Immune Group B Streptococcus: Negative Anatomy Ultrasound Placenta Location: Posterior Estimated Weight (grams): 3500 Steroid Therapy Steroid Therapy: No Vaginal Examination Dilation: 1cm Effacement: 50% Station: -3 Cervical Consistency: Medium Cervical Position: Posterior Presentation: Cephalic presentation (by US) Assessment Heart Rate (FHR): 130 Variability: Moderate Accelerations: Positive Decelerations: None Tocometer Contractions: Yes Frequency: regular Multi-drug resistant Organism: No history of MDRO Assessment/Plan Assessment Ms. Vega is a 19yo at 40+1 by LMP and presented for contractions. Her cervix was 1cm, but on monitoring she had mild range BPs and was diagnosed with GHTN as she also had mild ranges in prior in clinic. Decision made to proceed with induction if her cervix does not change on its on in 1-2h. She denied si/sx of pre-eclampsia at this time. APC 1. anxiety/depression, not on meds 2. CURTIS, does not need CPAP 3. recurrent loss, no RPL work up 4. gestational hypertension 5. obesity, BMI 34 to 35, 7# gain in Rh pos. GBS neg. Ceph by US. EFW 3500. Placenta posterior. Plan Pre-eclampsia labs on admission Plan for RPL workup Admit and orient. Worsted Winder and consent. Diet: clears Group B Streptococcus (GBS) negative Labs and intravenous (IV) per unit protocol. Counseled on Pitocin and induction of labor (IOL). Anticipate normal spontaneous delivery () C-S as appropriate. BARTOLO ALBERTO DO May 07, 2020 10:10
[2020-05-07 11:00] LABS: CREATININE,RANDOM URINE 35.8 MG/DL; TOTAL PROTEIN,RANDOM URINE 30.5 MG/DL (0.0-12.0)
[2020-05-07] MEDS ORDERED: LR 1,000 ML IV SCH (11:04)
[2020-05-07] MEDS ORDERED: OXYTOCIN DRIP 30 UNITS in IV 1 EA IV SCH ×2 (11:15→23:17)
[2020-05-07 11:31] LABS: HEMATOCRIT 34.9 % (36.0-47.0); MEAN CORPUSCULAR HEMOGLOBIN 31.7 pg (27.0-33.0); MEAN CORPUSCULAR HGB CONC 34.4 g/dl (32.0-36.5); MEAN CORPUSCULAR VOLUME 92.3 fl (80.0-96.0); PLATELET COUNT, AUTOMATED 208 10^3/uL (150-450); RED BLOOD COUNT 3.78 10^6/uL (4.00-5.40); WHITE BLOOD COUNT 5.9 10^3/uL (4.0-10.0)
[2020-05-07 11:56] LABS: ALT/SGPT 15 U/L (12-78); CREATININE FOR GFR 0.56 MG/DL (0.55-1.30); GLOMERULAR FILTRATION RATE > 60.0 (>60); LDH LACTATE DEHYDROGENASE 164 U/L (84-246)
[2020-05-07 11:57] LABS: BILIRUBIN,TOTAL 0.5 MG/DL (0.2-1.0); URIC ACID 4.8 MG/DL (2.6-6.0)
[2020-05-07] MEDS ORDERED: FENTANYL 2MCG/ML ROPIVACAINE 0.2% IN 0.9% NACL 100ML IVBAG As Ordered ONE (13:07)
[2020-05-07] MEDS ORDERED: REFRIGERATOR IV KEYS XX PRN (14:30)
[2020-05-07] MEDS ORDERED: FENTANYL/ROPIVACAINE/NACL BAG 100 ML EPIDURAL SCH (14:30)
[2020-05-07] MEDS ORDERED: EPIDURAL COMMENT XX SCH (14:30)
[2020-05-07] MEDS ORDERED: ePHEDrine SULFATE 25 MG/5 ML(5MG/ML) SYRINGE IV PRN (14:30)
[2020-05-07] MEDS ORDERED: EPIDURAL/PCA KEYS XX PRN (14:30)
[2020-05-07] MEDS ORDERED: LACTATED RINGER'S 1000 ML IV PRN (14:30)
[2020-05-07] MEDS ORDERED: diphenhydrAMINE 50MG/ML VIAL (J1200) IV PRN (14:30)
[2020-05-07] MEDS ORDERED: ONDANSETRON 4MG/2ML VIAL IV PRN (14:30)
[2020-05-07] MEDS ORDERED: NALOXONE INJ 0.4MG/1ML VIAL (J2310 PER 1MG) IV PRN (14:30)
--- NOTE | 2020-05-07 14:31 | IPNPDOC ---
Obstetrical Progress Note Date of Service May 07, 2020 Subjective Strip note. Objective Vital Signs Date Time Temp Pulse Resp B/P (MAP) Pulse Ox O2 Delivery O2 Flow Rate FiO2 05/07/20 10:30 16 05/07/20 10:20 91 138/88 (105) 05/07/20 08:54 97.8 Assessment Heart Rate (FHR): 120 Variability: Moderate Accelerations: Positive Decelerations: None, Late (intermittent) Heart Rate Tracing: Category II Tocometer Contractions: Yes Sterile Vaginal Examination Dilation: 3 cm (RN exam) Assessment and Plan Status: Reassuring Anticipate: Vaginal Delivery Additional Comments CAT I tracing, reactive. VS normotensive to mild range BPs, otherwise normal. Pitocin was started at 1100 when she had no cervical change since admission and she SROMed around that time. Recent RN exam 3cm. Patient has requested and since received an epidural. Will continue IOL with pitocin and reassess in 4-6h or sooner if clinically indicated. BARTOLO ALBERTO DO May 07, 2020 14:31
--- NOTE | 2020-05-07 16:22 | IPNPDOC ---
Obstetrical Progress Note Date of Service May 07, 2020 Subjective To room for assessment of prolonged deceleration. Patient has epidural and is comfortable. Objective Vital Signs Date Time Temp Pulse Resp B/P (MAP) Pulse Ox O2 Delivery O2 Flow Rate FiO2 05/07/20 14:30 85 137/72 (93) 05/07/20 11:39 16 05/07/20 08:54 97.8 Assessment Heart Rate (FHR): 130 Variability: Moderate Accelerations: Positive Decelerations: Early (intermittent), Late (intermittent) Heart Rate Tracing: Category II Tocometer Contractions: Yes Frequency: regular Sterile Vaginal Examination Dilation: 6 cm (per RN) Assessment and Plan Additional Comments To room for assessment at time of prolonged deceleration for 6 minutes. The tracing has had intermittent late and early decelerations but has good return to baseline and variability. Pitocin was shut off and the tracing returned to baseline, but intermittent late and early decelerations persist. SVE at time of deceleration was 6cm per RN and an FSE was placed. Given patient is progressing well will continue to closely monitor, plan to turn pitocin back on after 20 min of CAT I tracing. BARTOLO ALBERTO DO May 07, 2020 16:22
--- NOTE | 2020-05-07 19:28 | IPNPDOC ---
Obstetrical Progress Note Date of Service May 07, 2020 Subjective To room for assessment of increased pressure and pain. Objective Vital Signs Date Time Temp Pulse Resp B/P (MAP) Pulse Ox O2 Delivery O2 Flow Rate FiO2 05/07/20 18:30 77 131/73 (92) 05/07/20 11:39 16 05/07/20 08:54 97.8 Assessment Heart Rate (FHR): 135 Variability: Moderate Accelerations: Positive Decelerations: Early Heart Rate Tracing: Category I Tocometer Contractions: Yes Frequency: regular Sterile Vaginal Examination Dilation: 8 cm Effacement (%): 90% Station: -1 Cervical Consistency: Soft Cervical Position: Anterior Postion/Presentation: Cephalic presentation (by exam) Assessment and Plan Status: Reassuring Anticipate: Vaginal Delivery Additional Comments CAT I tracing, reactive, early decels noted. Normal VS, occasional mild range BP but no sx of pre-eclampsia. SVE 8/90/-1. Anesthesia consulted for optimization of epidural given pain increase. Will reassess in 1-2h or sooner if clinically indicated. BARTOLO ALBERTO DO May 07, 2020 19:28
[2020-05-07 23:13] LABS: CORD GAS ABE A -3.7; CORD GAS HCO3 A 21.8 MEQ/L; CORD GAS O2 SAT A 50.5 %; CORD GAS PCO2 A 40.8 mmHg; CORD GAS PH A 7.345 UNITS; CORD GAS SBC A 20.4 MEQ/L
[2020-05-07 23:16] LABS: CORD GAS ABE V -6.2; CORD GAS HCO3 V 17.1 MEQ/L; CORD GAS O2 SAT V 84.6 %; CORD GAS PCO2 V 28.9 mmHg; CORD GAS PH V 7.391 UNITS; CORD GAS PO2 V 34.4 mmHg; CORD GAS SBC V 19.2 MEQ/L
--- NOTE | 2020-05-07 23:27 | DNPDOC ---
[facility] Delivery Note Delivery Note DATE OF DELIVERY: 05/07/20 PREDELIVERY DIAGNOSIS: 40+1/7 weeks' gestation and labor. POST DELIVERY DIAGNOSIS: Delivered. PROCEDURE: Spontaneous vaginal delivery CREATIVE INTERN: Dr. Bartolo Alberto DO ANESTHESIA: epidural ESTIMATED BLOOD LOSS: 150 mL. FINDINGS: 3130g, Score 7/9, bandileer cord times 1. DELIVERY SUMMARY: Patient is a 19-year-old 5 now para 1041 who was admitted to labor and delivery for gestational hypertension and was diagnosed with pre-eclampsia based on admission protein to creatnine ratio. She was then augmented in her early labor with pitocin and progressed to C/C/+3. With good maternal effort the head delivered in the SITA position and restituted to O A. With nigel downward traction the right anterior shoulder would not deliver. The legs were reset and placed into Cali position which was unsuccessful. Suprapubic pressure was applied and the anterior shoulder delivered with nigel downward traction followed by the corpus atraumatically, a bandileer cord was noted. The total duration of the shoulder dystocia was 30 seconds. The baby had good tone but no spontaneous cry or movement. The cord was clamped and cut by the father of the baby and the baby was transferred to the warmer. At this time the baby had spontaneous movement and cry. Cord gasses and blood was obtained. With nigel downward traction the placenta was delivered in-tact and was inspected to have a 3 vessel cord. The clots were cleared from the lower uterine segment and with the aid of 30U of pitocin the uterus was firm and bleeding scant. On inspection of the vagina there was a periurethral tear that was repaired with 3-0 monocryl, a right labial abrasion that was made hemostatic with a 3-0 monocryl figure of eight, and a second degree midline laceration that was reapproximated with 2-0 vicryl. The uterus remained firm and bleeding scant. The patient tolerated the procedure well. The sponge, lap, and needle counts were correct. BARTOLO ALBERTO DO May 07, 2020 23:27
[2020-05-07] MEDS ORDERED: DIBUCAINE 1% OINTMENT 30GM TOP PRN (23:30)
[2020-05-07] MEDS ORDERED: IBUPROFEN 600MG TAB PO PRN (23:30)
[2020-05-07] MEDS ORDERED: IBUPROFEN 800 MG TAB PO PRN (23:30)
[2020-05-07] MEDS ORDERED: ACETAMINOPHEN TAB 650MG DOSE (2X325MG) PO PRN (23:30)
[2020-05-07] MEDS ORDERED: DOCUSATE SODIUM 100 MG CAP PO PRN (23:30)
[2020-05-07] MEDS ORDERED: ACETAMINOPHEN 500 MG TAB PO PRN (23:30)
[2020-05-08 00:01] VITALS: BP 139/80
[2020-05-08 00:16] VITALS: BP 143/80
[2020-05-08 00:31] VITALS: BP 136/74
[2020-05-08 01:45] VITALS: BP 114/60
[2020-05-08 04:36] LABS: APPEARANCE, URINE CLEAR (CLEAR); BACTERIA, URINE AUTO NEGATIVE (NEGATIVE); BILIRUBIN, URINE AUTO NEGATIVE (NEGATIVE); BLOOD, URINE BLOOD 3+ (NEGATIVE); GLUCOSE, URINE (UA) AUTO NEGATIVE (NEGATIVE); KETONE, URINE AUTO TRACE mg/dL (NEGATIVE); LEUKOCYTE ESTERASE, URINE AUTO 1+ (NEGATIVE); NITRITE, URINE AUTO NEGATIVE (NEGATIVE); PROTEIN, URINE AUTO 2+ mg/dL (NEGATIVE); RBC, URINE AUTO 9 /HPF (0-3); SPECIFIC GRAVITY URINE AUTO 1.002 (1.002-1.035); SQUAMOUS EPITHELIAL CELL UR AU 1 /HPF (0-6); UROBILINOGEN, URINE AUTO 0.2 mg/dL (0.0-2.0); WBC, URINE AUTO 19 /HPF (0-3)
[2020-05-08 04:39] LABS: COLOR, URINE RED (YELLOW)
[2020-05-08 06:00] VITALS: BP 114/59
[2020-05-08] MEDS ORDERED: medroxyPROGESTERone ACET IM SUSP 150 MG/ML VIAL (J1050) IM SCH (07:15)
--- NOTE | 2020-05-08 07:15 | IPNPDOC ---
Progress Note Date of Service: May 08, 2020 Day#: 1 Progress Note SUBJECT: Ms. Vega is a 19yo PPD1 s/p c/b 30s shoulder dystocia and second degree perineal laceration and c/b pre-eclampsia without severe features. She has been ambulating, voiding spontaneously without issue and tolerating regular diet. Breast feeding without issue. Reports lochia is like a normal period. Patient is ambulating well. Denies any pain. Voiding and stooling without difficulty. Overnight she had an episode of urinary incontinence but now has regained continence and has had a regular spontaneous void. OBJECTIVE: VITAL SIGNS: Within normal limits, afebrile. This is with exception of BP which is normotensive to mild range Alert and oriented times three. Pulm: no increased WOB Heart rate: Regular rate and rhythm Abdomen: Fundus firm at U-2. Soft, NTTP. Minimal lochia. ASSESSMENT: Ms. Vega is a 19yo PPD1 s/p c/b 30s shoulder dystocia and second degree perineal laceration and c/b pre-eclampsia without severe features. Vitals within normal limits with exception of BP wich is normotensive to mild range, afebrile, hemodynamically stable with no evidence of infection. PLAN: 1. Plan for continued in-patient BP monitoring 2. Tylenol and Motrin for pain. 3. Encourage breast feeding and ambulation. 4. Desires depo provera for contraception given before discharge, ordered 5. Routine PP visit in 6 weeks in clinic. 6. Discussed return precautions at length. 7. has a history of RPL but has never had work up, plan for work up at at PP visit VS, I&O, 24H, Mark Vital Signs/I&O Vital Signs Date Time Temp Pulse Resp B/P (MAP) Pulse Ox O2 Delivery O2 Flow Rate FiO2 05/08/20 06:00 99.3 101 18 114/59 (77) I&O- Last 24 Hours up to 6 AM 05/08/20 06:00 Intake Total 1297.5 ml Output Total 1350 ml Balance -52.5 ml Laboratory Data 24H LABS Laboratory Tests 2 05/07/20 09:55: Serology Scanned Report Hepatitis B Testing 05/07/20 10:10: Urine Random Creatinine 35.8, Urine Random Total Protein 30.5H 05/07/20 11:01: Nucleated Red Blood Cells % (auto) 0.0, Glomerular Filtration Rate > 60.0, Uric Acid 4.8, Total Bilirubin 0.5, Aspartate Amino Transf (AST/SGOT) 15, Alanine Aminotransferase (ALT/SGPT) 15, Lactate Dehydrogenase 164 05/07/20 22:47: Cord Arterial Blood pH 7.345, Cord Arterial Blood PCO2 40.8, Cord Arterial Blood PO2 21.0, Cord Arterial Blood HCO3 21.8, Cord Arterial Blood Total CO2 23.0, Cord Arterial Blood Base Excess -3.7, Cord Arterial Base Excess (Standard 20.4, Cord Arterial Bld Oxygen Saturation 50.5, Cord Venous Blood pH 7.391, Cord Venous Blood PCO2 28.9, Cord Venous Blood PO2 34.4, Cord Venous Blood HCO3 17.1, Cord Venous Blood Total CO2 18.0, Cord Venous Base Excess (Actual) -6.2, Cord Venous Base Excess (Standard) 19.2, Cord Venous Blood Oxygen Saturation 84.6 05/08/20 04:30: Urine Color REDH, Urine Appearance CLEAR, Urine pH 7.0, Urine Specific [place] 1.002, Urine Protein 2+H, Urine Glucose (Auto)(UA) NEGATIVE, Urine Ketones (Auto) TRACEH, Urine Blood 3+H, Urine Nitrite NEGATIVE, Urine Bilirubin NEGATIVE, Urine Urobilinogen 0.2, Urine Leukocyte Esterase (Auto) 1+H, Urine WBC (Auto) 19H, Urine RBC (Auto) 9H, Urine Hyaline Casts (Auto) 0, Urine Bacteria (Auto) NEGATIVE, Urine Squamous Epithelial Cells 1, Urine Sperm (Auto) CBC/BMP Laboratory Tests 05/07/20 11:01 Microbiology Microbiology 05/08/20 Urine Culture, Received Pending BARTOLO ALBERTO DO May 08, 2020 07:15
[2020-05-08] MEDS: PRENATAL VITAMINS CHEWABLE TABLET PO SCH (09:31)
[2020-05-08 18:00] VITALS: BP 132/78
[2020-05-08] MEDS ORDERED: DOCU100C16 PO (18:08)
[2020-05-08] MEDS ORDERED: IBUP80TA PO (18:08)
[2020-05-08] MEDS ORDERED: DIBU10OI TOP (18:08)
[2020-05-09 05:34] VITALS: BP 120/61
--- NOTE | 2020-05-09 07:16 | OBDS ---
[facility] Obstetrical Discharge Sum. Obstetrical Discharge Summary Date: May 09, 2020 : 4 Term: 1 Livin VDRL: Non-Reactive Rh: Positive Rubella: Immune Labor IOL for preeclampsia Delivery Infant Sex: Male Weight: grams (3130) A/P, Post Course List any complications Admission diagnosis: 1. Term . 2. Preeclampsia Discharge diagnosis: 1. Term 2. Preeclampsia Condition at Discharge: Good Discharge Instructions: Home Activity: Ad deniz, pelvic rest Diet: Regular Medications: As prescribed at 36wks Follow-up: 6wks Other: None Course: Uncomplicated. Hospital Course: Patient was admitted for IOL for preeclampsia which progressed without difficulty with a c/b a shoulder dystocia. Shoulder dystocia was relieved by Cali and no injury. There was a 2nd degree laceration which wa s repaired. course was uncomplicated with normal lochia, normal urination, ambulation, tolerating a diet, and controlled pain. Krys Conway MD May 08, 2020 18:08
--- NOTE | 2020-05-09 07:17 | IPNPDOC ---
Progress Note Date of Service: May 09, 2020 Day#: 1 Progress Note SUBJECT: Patient is a 19-year-old 4 now Para 1 status post complicated spontaneous vaginal delivery by shoulder dystocia with 2nd degree laceration and repair, doing well day # 1. She has been ambulating, voiding spontaneously without issue and tolerating regular diet. Breast feeding without issue. Reports lochia is like a normal period. Patient is ambulating well. Reports some cramping with . Has no pain. OBJECTIVE: VITAL SIGNS: Within normal limits, afebrile. GENERAL: No acute distress HEENT: Mucous membranes are moist BREAST: Nontender, no erythema CARDIOVASCULAR: RRR RESPIRATORY: Bilaterally clear ABDOMINAL EXAMINATION: Soft, appropriate tenderness, nondistended, fundus -2 PERINEUM: Intact, minimal lochia EXTREMITIES: no edema, nontender ASSESSMENT: Patient is a 19-year-old 4 now Para 1 status post complicated spontaneous vaginal delivery by shoulder dystocia with 2nd degree laceration and repair, doing well day # 1. Vitals within normal limits, afebrile, hemodynamically stable with no evidence of infection. PLAN: 1. Discharge to home today. 2. Tylenol and Motrin for pain. 3. Encourage breast feeding and ambulation. VS, I&O, 24H, [facility] Vital Signs/I&O Vital Signs Date Time Temp Pulse Resp B/P (MAP) Pulse Ox O2 Delivery O2 Flow Rate FiO2 05/08/20 06:00 99.3 101 18 114/59 (77) I&O- Last 24 Hours up to 6 AM 05/08/20 05:59 Intake Total 1297.5 ml Output Total 1350 ml Balance -52.5 ml Laboratory Data 24H LABS Laboratory Tests 2 05/07/20 22:47: Cord Arterial Blood pH 7.345, Cord Arterial Blood PCO2 40.8, Cord Arterial Blood PO2 21.0, Cord Arterial Blood HCO3 21.8, Cord Arterial Blood Total CO2 23.0, Co rd Arterial Blood Base Excess -3.7, Cord Arterial Base Excess (Standard 20.4, Cord Arterial Bld Oxygen Saturation 50.5, Cord Venous Blood pH 7.391, Cord Venous Blood PCO2 28.9, Cord Venous Blood PO2 34.4, Cord Venous Blood HCO3 17.1, Cord Venous Blood Total CO2 18.0, Cord Venous Base Excess (Actual) -6.2, Cord Venous Base Excess (Standard) 19.2, Cord Venous Blood Oxygen Saturation 84.6 05/08/20 04:30: Urine Color REDH, Urine Appearance CLEAR, Urine pH 7.0, Urine Specific [place] 1.002, Urine Protein 2+H, Urine Glucose (Auto)(UA) NEGATIVE, Urine Ketones (Auto) TRACEH, Urine Blood 3+H, Urine Nitrite NEGATIVE, Urine Bilirubin NEGATIVE, Urine Urobilinogen 0.2, Urine Leukocyte Esterase (Auto) 1+H, Urine WBC (Auto) 19H, Urine RBC (Auto) 9H, Urine Hyaline Casts (Auto) 0, Urine Bacteria (Auto) NEGATIVE, Urine Squamous Epithelial Cells 1, Urine Sperm (Auto) Microbiology Microbiology 05/08/20 Urine Culture, Received Pending Krys Conway MD May 08, 2020 18:14
[2020-05-09] MEDS: PRENATAL VITAMINS CHEWABLE TABLET PO SCH (09:22)
--- NOTE | 2020-05-18 12:41 | IPN ---
DATE: 05/08/2020 SUBJECTIVE: This patient and her requested circumcision of their male infant. After discussing the risks and benefits of the circumcision, the medical and non-medical indications, the penile block and aftercare, expressed an understanding of penile block, aftercare and bleeding, signed the consent form, all questions were answered; a 20 minute discussion. We await clearance by the stone derrickman and rigger. HAROLDO
== END 2020-05-09 17:35 | disposition home or self-care (01) | DRG 806 ==
LOC: M LDO 08:40 → M LDI 09:14 → M OBS 05-08 01:40
PROVIDERS: ADMIT Obstetrics & Gynecology; ATTEND Obstetrics & Gynecology
PROC: 10E0XZZ Delivery of Products of Conception, External Approach (ICD-10-PCS; principal; 2020-05-07)
PROC: 0KQM0ZZ Repair Perineum Muscle, Open Approach (ICD-10-PCS; 2020-05-07)
PROC: 0UQMXZZ Repair Vulva, External Approach (ICD-10-PCS; 2020-05-07)
DX: O14.94 Unspecified pre-eclampsia, complicating childbirth (principal); Z37.0 Single live birth; O99.354 Diseases of the nervous system complicating childbirth; Z3A.40 40 weeks gestation of pregnancy; O99.214 Obesity complicating childbirth; E66.9 Obesity, unspecified; O99.344 Other mental disorders complicating childbirth; F41.9 Anxiety disorder, unspecified; F32.9 Major depressive disorder, single episode, unspecified; O48.0 Post-term pregnancy; G47.33 Obstructive sleep apnea (adult) (pediatric); O76 Abnormality in fetal heart rate and rhythm complicating labor and delivery; O66.0 Obstructed labor due to shoulder dystocia; O71.82 Other specified trauma to perineum and vulva; O70.1 Second degree perineal laceration during delivery

== ENCOUNTER 2020-05-27 00:47 | Emergency (ER) | payer OTHER ==
[~2020-05-27] VITALS: Ht 162.6 cm; Wt 83.2 kg
[~2020-05-27 00:47] MED LIST changes: +DIBU10OI TOP; +DOCU100C16 PO; +IBUP80TA PO
[2020-05-27 00:48] VITALS: BP 133/84
== END 2020-05-27 01:41 | disposition home or self-care (01) ==
LOC: M ED 00:47
DX: N60.49 Mammary duct ectasia of unspecified breast (principal)

== ENCOUNTER 2020-09-05 07:22 | Day surgery (SDC) | payer OTHER ==
[~2020-09-05] VITALS: Ht 162.6 cm; Wt 96.2 kg
[~2020-09-05 07:22] MED LIST changes: +ACETAMINOPHEN 650 MG SUPP PR ONE; -BUPR150T3 PO; +BUPR150T4 PO; +ESCI10TA16; -ESCI10TA2; +HYDR50TA70; +LR 1,000 ML IV ONE; +ZOLO100T PO
--- OUTSIDE RECORDS SUMMARY | 2020-09-05 07:32 | CCD ---
Author Author [facility] Organization [facility] Address Unknown Phone Unavailable Care Team Providers Care Sample Prep Technician Name Role Phone Linn LE MD Unavailable Unavailable Linn LE MD Unavailable Unavailable Linn LE MD Unavailable Unavailable Linn LE MD Unavailable Unavailable Linn LE MD Unavailable Unavailable Linn LE MD Unavailable Unavailable Linn LE MD Unavailable Unavailable Linn LE MD Unavailable Unavailable Linn LE MD Unavailable Unavailable Linn LE MD Unavailable Unavailable Linn LE MD Unavailable Unavailable Linn LE MD Unavailable Unavailable Linn LE MD Unavailable Unavailable Linn LE MD Unavailable Unavailable Linn LE MD Unavailable Unavailable Linn LE MD Unavailable Unavailable Linn LE MD Unavailable Unavailable Linn LE MD Unavailable Unavailable Linn LE MD Unavailable Unavailable Linn LE MD Unavailable Unavailable Linn LE MD Unavailable Unavailable Linn LE MD Unavailable Unavailable Linn LE MD Unavailable Unavailable Linn LE MD Unavailable Unavailable Linn LE MD Unavailable Unavailable Linn LE MD Unavailable Unavailable Linn LE MD Unavailable Unavailable NATHEN PADILLA MD Unavailable Unavailable NATHEN PADILLA MD Unavailable Unavailable ABDULLAH, ISMAIL DENITA MD Unavailable Unavailable ABDULLAH, ISMAIL DENITA MD Unavailable Unavailable ABDULLAH, ISMAIL DENITA MD Unavailable Unavailable ABDULLAH, ISMAIL DENITA MD Unavailable Unavailable ABDULLAH, ISMAIL DENITA MD Unavailable Unavailable ABDULLAH, ISMAIL DENITA MD Unavailable Unavailable ABDULLAH, ISMAIL DENITA MD Unavailable Unavailable ABDULLAH, ISMAIL DENITA MD Unavailable Unavailable ABDULLAH, ISMAIL DENITA MD Unavailable Unavailable ABDULLAH, ISMAIL DENITA MD Unavailable Unavailable Re-disclosure Warning The records that you are about to access may contain information from federally-assisted alcohol or drug abuse programs. If such information is present, then the following federally mandated warning applies: This information has been disclosed to you from records protected by federal confidentiality rules (42 CFR part 2). The federal rules prohibit you from making any further disclosure of this information unless further disclosure is expressly permitted by the written consent of the person to whom it pertains or as otherwise permitted by 42 CFR part 2. A general authorization for the release of medical or other information is NOT sufficient for this purpose. The Federal rules restrict any use of the information to criminally investigate or prosecute any alcohol or drug abuse patient.The records that you are about to access may contain highly sensitive health information, the redisclosure of which is protected by Article 27-F of the [facility] Public Health law. If you continue you may have access to information: Regarding HIV / AIDS; Provided by facilities licensed or operated by the [facility] Office of Mental Health; or Provided by the [facility] Office for People With Developmental Disabilities. If such information is present, then the following [facility] mandated warning applies: This information has been disclosed to you from confidential records which are protected by state law. State law prohibits you from making any further disclosure of this information without the specific written consent of the person to whom it pertains, or as otherwise permitted by law. Any unauthorized further disclosure in violation of state law may result in a fine or alf sentence or both. A general authorization for the release of medical or other information is NOT sufficient authorization for further disc losure. Allergies and Adverse Reactions Type Description Substance Reaction Status Data Source(s ) No Known Allergies No Known Allergies [facility] Hospital Encounters Encounter Providers Location Date Indications Data Source(s ) Outpatient Attender: DENITA PADILLA MD 03/18 11:13:00 PM EDT - 04/03/2020 01:05:00 AM EDT [facility] Patient discharged. Outpatient Attender: SALVATORE LE MD 05:59:00 PM EDT - 03/14/2020 07:26:00 PM EDT [facility] Patient discharged. Outpatient 12/28/2019 05:43:00 AM EDT [facility] Outpatient 09/28/2019 02:34:00 PM [facility] Insurance Providers Payer name Policy type / Coverage type Policy ID Covered constitution party ID Covered constitution party's relationship to childers Policy Childers Plan Information [employer] [facility] [employer] [id number] HU [id number] [employer] [facility] [employer] - O/P [id number] 18 [id number] [employer] [facility] O [id number] S [id number] [employer] [facility] ACTIVE DUTY [id number] SP [id number] [facility] [id number] SP [id number] ANSI-Not a Secondary Insurance [id number] ANSI-Not a Secondary Insurance [id number] Problems, Conditions, and Diagnoses Code Display Name Description Problem Type Effective Dates Data Source(s) Z3A35 35 weeks gestation of 35 weeks gestation of Diagnosis 04/02/2020 11:13:00 PM EDT [facility] O2343 Unspecified infection of urinary tract i n , third trimester Unspecified infection of urinary tract in , third trimester [facility] of 32 weeks gestation of Diagnosis 03/14/2020 05:59:00 PM EDT [facility] R197 Diarrhea, unspecified Diarrhea, unspecified Diagnosis 03/14/2020 05:59:00 PM [facility] O9989 Other specified diseases and conditions complicating , childbirth and the puerperium Other specified diseases and conditions complicating , childbirth and the puerperium Diagnosis 03/14/2020 05:59:00 PM EDT [facility] Results ID Date Data Source [id number] 08/31/2020 11:16:00 AM EST [facility] Name Value Range Interpretation Code Description Data Alyce rce(s) Supporting Document(s) SARS coronavirus 2 RNA Not Detected [facility] [place] This lab was ordered by [facility] and reported by [facility]. ID Date Data Source [id number] 04/04/2020 06:33:00 PM EDT [facility] Name Value Range Interpretation Code Description Data Alyce rce(s) Supporting Document(s) SOURCE: Genital [facility] [place] sp rRNA [Presence] in Vaginal fluid by DNA probe Positive N egative A [facility] Gardnerella vaginalis rRNA [Presence] in Genital specimen by DNA probe Negative Negative [facility] Trichomonas vaginalis rRNA [Presence] in Genital specimen by DNA probe Negative Negative [facility] ID Date Data Source [id number] 04/05/2020 10:32:00 AM EDT [facility] Name Value Range Interpretation Code Description Data Alyce rce(s) Supporting Document(s) CULTURE URINE [facility]ital _CULTURE URINE_$$[id number]$$[id number]$$[id number]$$[id number]$$978248$$056813$$554524$$412412$$535092$$ 313376$$115787$$965875$$945520$$548169$$945521$$033506$$717290$$501212$$057836$$ 570748$$943043$$085989$$136510$$449609$$621451$$460996$$718318 -- Continued on next page --Patient: JEREMÍAS Esteves Order: [id number] Page 2Culture: CULTURE URINE Status: Final ==== -- Continued on next page --Patient: JEREMÍAS Esteves Order: [id number] Page 2Culture: CULTURE URINE Status: Prelim =====$$[id number]$$[id number] DATE/TIME: 04/05/2020 10:07Culture: CULTURE URINE Status: FinalUrine Culture,Comprehensive: V9Rogfa urogenital flora7,000 Colonies/mL Previous result entered on 04/04/2020 23:17 ET Specimen has been received and testing has been initiated.P1 Test performed by: [facility] #: [id number] [address] [place] [id number] [facility] [id number] Director : Christiano Wilson MD NPI #:Clay Machine Operator : 04/05/[email or web address].SENT REF 04/05/20.1032.XMT.SENT REF ID Date Data Source [id number] 04/02/2020 11:37:00 PM EDT [facility] Name Value Range Interpretation Code Description Data Alyce rce(s) Supporting Document(s) URINALYSIS [facility] kailyn URINALYSIS SOURCE R [facility] COLOR yellow NORMAL: Yellow [facility] CLARITY hazy NORMAL: Clear [facility] Specific gravity of Urine by Test strip 1.015 1.001 - 1.030 [facility] pH 6.5 5 - 9 [facility] Glucose [Mass/volume] in Urine by Test strip NORM NORMAL: Negat alex [facility] Bilirubin.total [Presence] in Urine by Test strip NEG NORMAL: Negative [facility] Ketones [Presence] in Urine by Test strip NEG NORMAL: Negative [facility] Protein [Mass/volume] in Urine by Test strip 15 NORMAL: Negat alex [facility] Nitrite [Presence] in Urine by Test strip NEG NORMAL: Negative [facility] BLOOD NEG NORMAL: Negative [facility] Leukocyte esterase [Presence] in Urine by Test strip 500 MARJAN L: Negative A [facility] Urobilinogen [Mass/volume] in Urine by Test strip 1 less booker n 1.0 mg/dL [facility] MICROSCOPIC See Below [facility] ital WBC 10 - 15 NORMAL: NONE SEEN A [facility] Erythrocytes [#/volume] in Urine by Test strip 1 - 3 NORMAL: NON E SEEN [facility] EPITHELIAL MODERATE NORMAL: NONE SEEN A [facility] Bacteria [Presence] in Urine sediment by Light microscopy 2+ MOD NORMAL: NONE SEEN A [facility] Mucus [Presence] in Urine sediment by Light microscopy 1+ NOR MAL: NONE SEEN [facility] Amorphous sediment [Presence] in Urine sediment by Light luz elena roscopy 1+ NORMAL: NONE SEEN [facility] ID Date Data Source [id number] 03/20/2020 06:38:00 AM EDT [facility] Name Value Range Interpretation Code Description Data Alyce rce(s) Supporting Document(s) CULTURE URINE [facility] spital _CULTURE URINE_$$[id number]$$[id number]$$[id number]$$039859$$917810$$398405$$954943$$617338$$040203$$ 136399$$504631$$977355$$848961$$061493$$553770$$916886$$067790$$005638$$906831$$ 889427$$451579$$130006$$076207$$351098$$251690$$461913$$913438 -- Continued on next page --Patient: JEREMÍAS Esteves Order: [id number] Page 2Culture: CULTURE URINE Status: Final ==== -- Continued on next page --Patient: JEREMÍAS Esteves Order: [id number] Page 2Culture: CULTURE URINE Status: Prelim =====$$[id number]$$[id number] DATE/TIME: 03/19/2020 16:06Culture: CULTURE URINE Status: FinalIsolate 1 Staphylococcus epidermidis Flag: A . . . . . . .650,000-100,000 colony forming units per mLBased on resistance to oxacillin this isolate would be resistant toall currently available beta-lactam antimicrobial agents, with theexception of the newer cephalosporins with anti-MRSA activity, such asCeftaroline Previous result entered on 03/17/2020 06:10 ET Microbiological testing to rule out the presence of possible pathogensis in progress.Urine Culture,Comprehensive: X6Hfemywaiakwebv epidermidis Flag: APatient: JEREMÍAS Esteves Order: [id number] Page 3Culture: CULTURE URINE Status: Final ISOLATE 1 Staphylococcus epidermidis Isolate 1Antibiotic LUZ ELENA IntUnits ug /mL --Ciprofloxacin S S . . . . . .185-9Gentamicin S S . . . . . .267-5Levofloxacin S S . . . . . .35494-9Qpicfqrbu S S . . . . . .35675-3Awatgbdhhjjptr S S . . . . . .363-2Oxacillin R R . . . . . .383-0Penicillin R R . . . . . .6932-8Quinupristin/Dalfopristin S S . . . . . .98298-6Hohulxlo S S . . . . . .428-3Tetracycline S S . . . . . .496- 0Trimethoprim/Sulfa S S . . . . . .516-5Vancomycin S S . . . . . .524-9P1 Test performed by: [facility] #: [id number] [address] [place] [id number] [facility] [id number] Director : Casper Wilson MD NPI #:Clay Machine Operator : 03/17/20.0804.XMT.SENT REF 03/20/20.0638.XMT.SENT REF ID Date Data Source [id number] 03/14/2020 06:55:00 PM EDT [facility] Name Value Range Interpretation Code Description Data Alyce rce(s) Supporting Document(s) URINALYSIS [facility] kailyn URINALYSIS SOURCE R [facility] COLOR yellow NORMAL: Yellow [facility] CLARITY clear NORMAL: Clear [facility] Specific gravity of Urine by Test strip 1.015 1.001 - 1.030 [facility] pH 8 5 - 9 [facility] Glucose [Mass/volume] in Urine by Test strip NORM NORMAL: Negat [facility] Bilirubin.total [Presence] in Urine by Test strip NEG NORMAL: Negative [facility] Ketones [Presence] in Urine by Test strip NEG NORMAL: Negative [facility] Protein [Mass/volume] in Urine by Test strip NEG NORMAL: Negat [facility] Nitrite [Presence] in Urine by Test strip NEG NORMAL: Negative [facility] BLOOD NEG NORMAL: Negative [facility] Leukocyte esterase [Presence] in Urine by Test strip 100 MARJAN L: Negative A [facility] Urobilinogen [Mass/volume] in Urine by Test strip 1 less booker n 1.0 mg/dL [facility] MICROSCOPIC See Below [facility] ital WBC 3 - 5 NORMAL: NONE SEEN [facility] Erythrocytes [#/volume] in Urine by Test strip 0 - 1 NORMAL: NON E SEEN [facility] EPITHELIAL MODERATE NORMAL: NONE SEEN A [facility] Bacteria [Presence] in Urine sediment by Light microscopy No ne Seen NORMAL: NONE SEEN [facility] Mucus [Presence] in Urine sediment by Light microscopy 1+ NOR MAL: NONE SEEN [facility] Procedure
[2020-09-05 08:05] LABS: HEMATOCRIT 37.8 % (36.0-47.0); HEMOGLOBIN 12.4 g/dl (12.0-15.5); MEAN CORPUSCULAR HEMOGLOBIN 30.2 pg (27.0-33.0); MEAN CORPUSCULAR HGB CONC 32.8 g/dl (32.0-36.5); PLATELET COUNT, AUTOMATED 297 10^3/uL (150-450); RED BLOOD COUNT 4.11 10^6/uL (4.00-5.40); WHITE BLOOD COUNT 4.9 10^3/uL (4.0-10.0)
[2020-09-05 08:19] LABS: BLOOD UREA NITROGEN 10 MG/DL (7-18); CALCIUM LEVEL 9.8 MG/DL (8.5-10.1); CARBON DIOXIDE LEVEL 26 MEQ/L (21-32); CHLORIDE LEVEL 111 MEQ/L (98-107); CREATININE FOR GFR 0.76 MG/DL (0.55-1.30); GLOMERULAR FILTRATION RATE > 60.0 (>60); GLUCOSE, FASTING 102 MG/DL (70-100); HCG, SERUM QUANTITATIVE < 1.0 MIU/ML; POTASSIUM SERUM 4.6 MEQ/L (3.5-5.1); SODIUM LEVEL 142 MEQ/L (136-145)
[2020-09-05] MEDS ORDERED: propofoL 200 MG/20 ML VIAL As Ordered ONE ×2 (08:39→09:49)
[2020-09-05] MEDS ORDERED: fentaNYL 100 MCG/2 ML INJECTION (J3010) As Ordered ONE (08:39)
[2020-09-05] MEDS ORDERED: LIDOCAINE 2% 100MG/5ML SDV (FOR ANES.) As Ordered ONE (08:39)
[2020-09-05] MEDS ORDERED: MIDAZOLAM INJ 2MG/2ML VIAL (J2250 PER 1MG) As Ordered ONE (08:40)
[2020-09-05] MEDS ORDERED: ACETAMINOPHEN 650 MG SUPP As Ordered ONE (09:01)
[2020-09-05] MEDS ORDERED: LIDOCAINE 2% MDV 20ML VIAL As Ordered ONE (09:01)
[2020-09-05] MEDS ORDERED: METOCLOPRAMIDE INJ 10MG/2ML VIAL (J2765 PER 1) As Ordered ONE (09:50)
[2020-09-05] MEDS ORDERED: KETOROLAC 60MG 2ML VIAL As Ordered ONE (09:50)
[2020-09-05] MEDS ORDERED: ONDANSETRON 4MG/2ML VIAL As Ordered ONE (09:50)
[2020-09-05] MEDS ORDERED: oxyCODONE 5MG TAB PO PRN (10:15)
[2020-09-05] MEDS ORDERED: fentaNYL 100 MCG/2 ML INJECTION (J3010) IV PRN (10:15)
[2020-09-05] MEDS ORDERED: LR 1,000 ML IV SCH (10:15)
[2020-09-05] MEDS ORDERED: ONDANSETRON 4MG/2ML VIAL IV PRN (10:15)
[2020-09-05] MEDS ORDERED: METOCLOPRAMIDE INJ 10MG/2ML VIAL (J2765 PER 1) IV PRN (10:15)
[2020-09-05] MEDS ORDERED: MEPERIDINE INJ 25 MG/ML VIAL (J2175) IV PRN (10:15)
[2020-09-05] MEDS ORDERED: IBUPROFEN 600MG TAB PO PRN ×2 (10:30→15:45)
[2020-09-05 12:25] VITALS: BP 128/77
[2020-09-05] MEDS ORDERED: KETOROLAC 30 MG/ML 1ML VIAL IV PRN (15:45)
--- NOTE | 2020-09-13 09:24 | RO ---
OPERATIVE NOTE DATE OF OPERATION: 09/05/2020 PREOPERATIVE DIAGNOSIS: Revision of 2nd degree episiotomy. POSTOPERATIVE DIAGNOSIS: Revision of 2nd degree episiotomy. OPERATION PROPOSED: Revision of episiotomy. OPERATION PERFORMED: Revision of episiotomy. SURGEON: Jordan Vargas MD ENTRY LEVEL ACCOUNT REPRESENTATIVE: ANESTHESIA: General plus local anesthetic for intraperineal procedure. ESTIMATED BLOOD LOSS: Less than 10 mL. DESCRIPTION OF PROCEDURE: After adequate time out, prepped and draped in lithotomy position, Acetaminophen suppository at 1300 mg per rectum, sequentials in place. We reviewed the anatomy and this lady had a 2nd degree tear of the right lateral wall of the vagina to the introitus and incorporated into the perineum. Over a course of period of time she had some chronic inflammatory effect in the area and tethering down of the repaired 2nd degree to the perineal surface. With Allis' we were able to excise the whole length of the revision site, freshening up the edges and removing the inflammatory process. We then went ahead and loosened up the fascia underneath the perineal body and then with separate glove digitally we made sure the rectum was not compromised and sphincter was adequate. We then went ahead and after discarding the glove we repaired the 2nd degree episiotomy with 3-0 Monocryl using interrupted sutures to the fourchette and then using crown stitch at the fourchette and then closing subcuticular from the fourchette down to perineal body. We used local Xylocaine jelly into the area for postoperative discomfort. Appropriate Vaseline diaper was applied. The patient was taken back to the recovery room in good condition.
== END 2020-09-05 12:25 | disposition home or self-care (01) ==
LOC: M SDC 07:22
PROVIDERS: ATTEND Obstetrics & Gynecology
DX: N90.89 Other specified noninflammatory disorders of vulva and perineum (principal); L90.5 Scar conditions and fibrosis of skin; F43.10 Post-traumatic stress disorder, unspecified; D64.9 Anemia, unspecified; F41.9 Anxiety disorder, unspecified; F32.9 Major depressive disorder, single episode, unspecified; G43.909 Migraine, unspecified, not intractable, without status migrainosus; Z87.891 Personal history of nicotine dependence; Z79.899 Other long term (current) drug therapy
CPT/HCPCS: 36415; 56810; 80048; 84702; 85027; 88304; J1885; J2250; J2405; J2765; J3010